=== PATIENT | female | born 1945 | race Caucasian/White ===

== ENCOUNTER → 2021-02-23 | Outpatient (CLI) | payer MEDICARE | END | disposition home or self-care (01) | LOC: LABWHC1 15:16 | PROVIDERS: ATTEND Nurse Practitioner Family | DX: Z53.9 Procedure and treatment not carried out, unspecified reason (principal) ==

== ENCOUNTER → 2023-08-27 | Outpatient (CLI) | payer MEDICARE ==
--- NOTE | 2023-08-29 17:43 | BD ---
EXAMINATION TYPE: Axial Bone Density DATE OF EXAM: 08/27/2023 CLINICAL HISTORY: 77 years old Female. 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 Bone mineral density as measured about the Lumbar spine is: ----- L1-L4(G/cm2): 1.050 T Score Values are as follows: ----- L1: -1.0 ----- L2: -1.7 ----- L3: -1.0 ----- L4: -0.9 ----- L1-L4: -1.1 Z Score Values are as follows: ----- L1: 0.1 ----- L2: -0.7 ----- L3: 0.0 ----- L4: 0.1 ----- L1-L4: -0.1 Bone mineral density has: Increased 6.0% since study of: 05/13/2004 Bone mineral density about the R hip (g/cm2): 0.713 Bone mineral density about the L hip (g/cm2): 0.731 T Score values are as follows: -----R Neck: -2.4 -----L Neck: -2.6 -----R Total: -2.3 -----L Total: -2.2 Z Score values are as follows: -----R Neck: -0.9 -----L Neck: -1.0 -----R Total: -1.0 -----L Total: -0.9 Bone mineral density has: Decreased -18.8% since study of: 05/13/2004 FRAX%s: The graph provided illustrates a 17.7% chance for a major osteoporotic fx and a 5.9% chance f or the hips probability for fx in 10 years time. IMPRESSION: Osteoporosis (T Score less than -2.5). There is increased fracture risk and therapy is usually indicated based on age. Re-Screen 1-2 years. NOTE: T-SCORE=SD OF THE YOUNG ADULT MEAN.
== END | disposition home or self-care (01) ==
LOC: RADBDWWP 12:46
PROVIDERS: ATTEND Internal Medicine Hematology & Oncology
DX: M81.0 Age-related osteoporosis without current pathological fracture (principal); M85.89 Other specified disorders of bone density and structure, multiple sites; C50.411 Malignant neoplasm of upper-outer quadrant of right female breast; I10 Essential (primary) hypertension; E11.9 Type 2 diabetes mellitus without complications
CPT/HCPCS: 77080

== ENCOUNTER → 2024-07-29 | Outpatient (CLI) | payer MEDICARE ==
--- NOTE | 2024-07-29 11:04 | XR ---
EXAMINATION TYPE: XR knee complete bilateral DATE OF EXAM: 07/29/2024 CLINICAL INDICATION: Female, 78 years old with history of M25.569 KNEE PAIN OSTEOPOROSIS FALL WITH IN JURY, pain TECHNIQUE: Frontal, lateral, and oblique views of the bilateral knees were obtained. COMPARISON: None. FINDINGS: There is no acute fracture/dislocation evident in either knee. Moderate to severe narrowin g with mild to moderate spurring left greater than right medial tibiofemoral compartments is seen. Mi ld to moderate narrowing and spurring patellofemoral compartment bilaterally is present. The overlyi ng soft tissue appears unremarkable bilaterally. IMPRESSION: As above. [facility], , 07/29/2024 11:02 AM
== END | disposition home or self-care (01) ==
LOC: RADXRMAIN 10:32
PROVIDERS: ATTEND Family Medicine
DX: M81.0 Age-related osteoporosis without current pathological fracture (principal); W19.XXXA Unspecified fall, initial encounter